=== PATIENT | female | born 1990 | race Caucasian/White ===

== ENCOUNTER 2017-08-22 21:33 | Observation (INO) ==
[2017-08-22] MEDS ORDERED: ONDANSETRON 4 MG/2 ML VIAL IV ONE (21:56)
[2017-08-22] MEDS ORDERED: 0.9 % SODIUM CHLORIDE 1,000 ML IV ONE ×2 (22:02→23:00)
[2017-08-22] MEDS ORDERED: PROMETHAZINE 25 MG/ML VIAL IV ONE (22:19)
[2017-08-22 22:50] LABS: ALT/SGPT 21 U/l (0-40); Albumin 3.9 gm/dL (3.2-5.2); Albumin/Globulin Ratio 1.3 (1.0-2.3); Alkaline Phosphatase 139 U/L (39-117); Blood Urea Nitrogen 15 mg/dl (6-20)
--- NOTE | 2017-08-22 23:12 | Emergency Department Note ---
Abdominal Pain HPI - General Chief Complaint: Flank Pain Stated Complaint: difficulty urinating, right flank pain Time Seen by Provider: 08/22/17 21:38 Source: patient Mode of arrival: ambulatory Limitations: no limitations - History of Present Illness HPI Narrative: The patient is a pleasant 27-year-old female who presents today with worsening right-sided flank pain and back pain status post cholecystectomy last Friday. The patient reports that she had a cholecystectomy for known gallstones and that she was kept overnight and discharged on Friday. She reports that the first couple of days she was doing well but then began having right-sided flank pain, nausea, vomiting and dry heaving. She reports that her incision sites are very painful. She denies any fevers at home. Is having trouble getting food and fluids down although she is trying. Describes the pain as a 10 on 10, sharp and throbbing. Denies any fevers but states she has been chilled. And she has had diarrhea since the day of surgery. She also describes feeling short of breath here tonight. with review of records from Dr. Borrero - pre-operative dx included cholelithiasis with cholecystitis. "No drain necessary" is in the report but patient has a drain in place. MD Complaint: abdominal pain, flank pain Severity scale (1-10): 10 Quality: sharp - Related Data Home Medications Medication Instructions Recorded Confirmed Cyclobenzaprine [Flexeril] 10 mg PO TID 07/08/17 08/23/17 traMADol [Ultram] 50 - 100 mg PO Q4-6HP PRN 07/08/17 08/23/17 Previous Rx's Medication Instructions Recorded HYDROcodone/APAP 5/325MG [[place] 1 tab PO Q4HP PRN #30 tab 08/16/17 5-325Mg] Allergies Allergy/AdvReac Type Severity Reaction Status Date / Time NSAIDS (Non-Steroidal Allergy Unknown Unknown Verified 08/15/17 20:54 Anti-Inflamma Review of Systems All systems ED: reviewed and negative except as stated. Abdominal Pain PMH - Past Medical History Attestation: Yes: The following information was validated with the patient. Medical history: Reports: no medical history Surgical history ED: Reports: cholecystectomy - Social History Smoking status: Former smoker Alcohol use: Reports: Unknown Drug use: Reports: unknown Physical Exam Limitations: no limitations General appearance: alert, in distress (diaphoretic, dry heaving into a bag) Head: atraumatic, normocephalic Eye: Present: normal appearance ENT: normal exam Chest: Present: normal inspection Respiratory: Present: normal lung sounds bilaterally (patient reports it's hard to breath deeply) Cardiovascular: Present: regular rate, normal rhythm Abdominal: Present: soft, tenderness (right lateral abdomen surrounding the drain site, incision sites are healing without significant erythema - sutures in place), normal bowel sounds Abdominal tenderness: Present: RUQ, RLQ, moderate Extremities: Present: normal inspection Neurological: Present: alert, oriented X3 Skin: Present: warm, diaphoresis Course Course Narrative: Patient presents 1 week status post cholecystectomy with shortness of breath, right flank pain and right upper quadrant abdominal pain. Her vital signs are stable but she is dry heaving in the room and obviously uncomfortable. Lab work was ordered, IV fluids started, IV antinausea medication started, CT scan abdomen and pelvis and chest x-ray obtained. - Reevaluation(s) Reevaluation #1: Lab work returned showing relatively normal results. No leukocytosis appreciated. She does have a slightly elevated alkaline phosphatase compared to before surgery that would be expected after the procedure. CT abdomen and pelvis returned showing no evidence of an acute postsurgical complication from cholecystectomy. Hepatis steatosis was appreciated and colonic stool. End was considered and moderate with evidence of small bowel ileus. The patient this time continued to have nausea and vomiting. She was given Phenergan with some improvement of her symptoms. Reevaluation #2: Called and spoke with Dr. Borrero about the patient and findings of an ileus. Will admit for observation. Vital Signs Temperature 98.4 F 08/22/17 21:33 Pulse Rate 81 08/22/17 21:33 Respiratory Rate 16 08/22/17 21:33 Blood Pressure 126/82 08/22/17 21:33 Pulse Oximetry (%) 98 08/22/17 21:33 Temperature 97.4 F 08/23/17 00:55 Pulse Rate 72 08/23/17 00:55 Respiratory Rate 10 L 08/23/17 00:55 Blood Pressure 100/63 08/23/17 00:55 Pulse Oximetry (%) 94 08/23/17 00:55 Abdominal Pain - Lab Data Lab results reviewed: Yes I reviewed the patient's lab results. Result diagrams: 08/22/17 22:05 08/22/17 22:05 Lab Results 08/22/17 08/22/17 Range/Units 22:05 22:05 WBC 7.4 (4.5-11.0) K/mcL RBC 4.26 (4.00-5.20) M/mcL Hgb 11.9 L (12.0-15.0) g/dL Hct 36.0 (36.0-48.0) % MCV 84.6 (80.0-100.0) fL MCH 28.0 (26.0-34.0) pg MCHC 33.1 (31.0-36.0) g/dL RDW 14.1 (11.5-14.5) % Plt Count 276 (140-440) K/mcL MPV 9.6 (7.4-10.4) fL Gran % 69.0 (38.0-78.0) % Lymph % (Auto) 20.2 (15.5-49.0) % [place] % (Auto) 7.2 (1.0-12.0) % Eos % (Auto) 1.3 (0.0-7.0) % Baso % (Auto) 2.3 H (0.0-2.0) % Gran # 5.1 (1.8-8.0) K/mcL Lymph # (Auto) 1.5 (1.5-4.8) K/mcL [place] # (Auto) 0.5 (0.1-0.9) K/mcL Eos # (Auto) 0.1 (0.0-0.7) K/mcL Baso # (Auto) 0.2 (0.0-0.3) K/mcL Sodium 134 (133-145) mmol/L Potassium 4.2 (3.3-5.1) mmol/L Chloride 98 (96-108) mmol/L Carbon Dioxide 26 (22-30) mmol/L Anion Gap 10.0 (8-16) BUN 15 (6-20) mg/dl Creatinine 0.7 (0.6-1.1) mg/dl GFR Calculation 117 Glucose 121 H (70-105) mg/dL Calcium 8.9 (8.6-10.4) mg/dl Total Bilirubin 0.2 (0.0-1.0) mg/dL AST 23 (0-37) U/l ALT 21 (0-40) U/l Alkaline Phosphatase 139 H (39-117) U/L Total Protein 6.9 (5.9-8.4) gm/dL Albumin 3.9 (3.2-5.2) gm/dL Globulin 3.0 (2.2-3.7) gm/dL Albumin/Globulin Ratio 1.3 (1.0-2.3) Disposition Pt seen by TECHNICAL ADMINISTRATIVE ASSISTANT/PA only: No Clinical Impression: Postoperative ileus Disposition: Xfer As Outpt/Obs ([facility]) Condition: Fair
[2017-08-22 23:14] LABS: Basophils # (Auto) 0.2 K/mcL (0.0-0.3); Basophils % (Auto) 2.3 % (0.0-2.0); Eosinophils # (Auto) 0.1 K/mcL (0.0-0.7); Eosinophils % (Auto) 1.3 % (0.0-7.0); Lymphocytes # (Auto) 1.5 K/mcL (1.5-4.8); Lymphocytes % (Auto) 20.2 % (15.5-49.0); Mean Cell Volume 84.6 fL (80.0-100.0); Mean Corpuscular HGB Conc 33.1 g/dL (31.0-36.0); Monocytes # (Auto) 0.5 K/mcL (0.1-0.9); Monocytes % (Auto) 7.2 % (1.0-12.0); Platelet Count 276 K/mcL (140-440); RBC 4.26 M/mcL (4.00-5.20); Red Cell Distribution Width 14.1 % (11.5-14.5)
[2017-08-23] MEDS ORDERED: ONDANSETRON 4 MG/2 ML VIAL IV PRN (00:09)
[2017-08-23] MEDS ORDERED: PROMETHAZINE 25 MG/ML VIAL IV PRN (00:10)
[2017-08-23] MEDS: ACETAMINOPHEN 650 MG/65 ML BOTTLE IV PRN ×4 (01:13→23:41)
[2017-08-23] MEDS: 0.9 % SODIUM CHLORIDE 1,000 ML IV SCH ×2 (01:14→12:23)
--- NOTE | 2017-08-23 06:13 | Cat Scan Report ---
CLINICAL INFORMATION: Status post cholecystectomy. Abdominal pain. COMPARISON: 07/08/2017 TECHNIQUE: Axial images were obtained through the abdomen and pelvis. Sagittally and coronally reformatted images. FINDINGS: Lung bases are negative. No ankle infiltrate or mass. No pleural fluid. No pericardial fluid. There is a small hiatal hernia. Patient has undergone previous H[place]-en-Y gastric bypass. Patient is also status post open cholecystectomy. There is a surgical drain in the subhepatic space. There are surgical clips in the gallbladder fossa. No evidence for postsurgical abscess. No significant free intraperitoneal fluid. No localized fluid collections. Patient did not receive intravenous or oral contrast material which diminishes the sensitivity of this examination. No focal intrahepatic abnormalities. Liver contour is smooth. No splenomegaly. Pancreas is negative. No pancreatitis. No adrenal mass. The adrenal glands are suboptimally visualized. No hydronephrosis. No obstructing or nonobstructing renal calculi. No hydroureter. No bladder stone. Uterus is present and retroflexed. No pelvic abscess. No adnexal mass. No diverticulitis. No detectable colonic mass. No evidence for appendicitis. The appendix is not well-visualized but there is no enlarged appendix or localized inflammatory reaction. Slight amount fecal material appears normal. No small bowel dilatation. No pneumatosis. No biliary or portal venous gas. No pneumoperitoneum. Patient has undergone previous spinal fusion from the lower thoracic spine to the sacrum. There has been long segment posterior decompression. Examination was initially interpreted by [facility] IMPRESSION: 1. Status post open cholecystectomy. No postoperative abscess. 2. Otherwise no acute abnormality or interval change since 07/08/2017 The exam was performed using radiation dose optimization techniques including, but not limited to, automated exposure control, adjustment of the mA and/or kV according to patient size and use of iterative reconstruction technique. Interpreted and Authenticated by: Archie Duque 08/23/17
--- NOTE | 2017-08-23 06:15 | XRay Report ---
INDICATION: Previous cholecystectomy. Abdominal pain. TECHNIQUE: AP and lateral upright chest x-ray COMPARISON: 08/07/2014 FINDINGS: Lungs are negative. No parenchymal infiltrate or mass. Heart size and vascularity are normal. No pulmonary edema or pulmonary congestion. No acute abnormality. No pneumoperitoneum Patient has undergone long thoracolumbar fusion for treatment of scoliosis. IMPRESSION: Negative AP and lateral chest x-ray. No acute or focal abnormality Interpreted and Authenticated by: Archie Duque 08/23/17
[2017-08-23] MEDS ORDERED: METOCLOPRAMIDE 10 MG/2 ML VIAL IV PRN (12:34)
--- NOTE | 2017-08-23 13:02 | General Surg History&Physical ---
History of Present Illness Patient information: Note initiated : 08/23/17 at 12:58 pm Service Date, if different from initiated Date: [] Patient: Alana Soares 27 y/o F admitted on 08/23/17 for difficulty urinating, right flank pain. Chief Complaint: [] HPI: Ms. Soares is a 27 year old F admitted with right flank and right CVA pain with associated nausea and vomiting. The patient states that she had acute onset of right-sided flank pain about 2 days ago. Has increased in severity. She has noted difficulty with voiding and does not have the sensation of bladder fullness. Her urine has been darker. She has not had urgency or frequency. She has mild soreness around her staple lines and around her STARR drain. Bowel movements have been watery but not frequent. She was seen in the emergency room and treated. Her LFTs are normal and white blood count is normal. CT shows normal bowel gas pattern with gas and colon and small bowel. Gas extends to the rectum and she has had anticipated amount of stool in her colon. Urine study was not done. Patient is status post laparoscopic cholecystectomy 1 week ago and was going well until onset of symptoms 2 days ago. Her STARR drainage is serous. Review of Systems - Constitutional malaise, no weakness, no weight loss - EENT Nose, mouth and throat: no abnormal hearing, no dizziness, no vertigo - Cardiovascular no chest pain with activity, no dyspnea on exertion, no palpatations, no syncope - Respiratory no cough, no pain on inspirtation, no excessive phlegm production, no pain with cough - Gastrointestinal abdominal pain, bloating, diarrhea, nausea, vomiting - Genitourinary Genitourinary: change in urinary stream, difficulty urinating, flank pain, urinary urgency, no dysuria - Musculoskeletal stiffness, no arthralgias, no myalgias - Integumentary no changing lesions, no new lesions, no pruritus, no rash - Neurological no focal weakness, no headache(s), no lack of coordination, no vertigo - Psychiatric anxiety, no depression - Endocrine no fatigue - Hematologic/Lymphatic no easy bleeding, no easy bruising, no lymphadenopathy - Allergic/Immunologic no tongue swelling, no throat swelling, no uticaria, no wheezing, no lip swelling Past History Past medical history: 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 Chronic neuropathic pain History of gallstone disease Hypertension GERD Past surgical history: Gastric bypass Full spinal realignment Laparoscopic gastric banding Past family history: Diabetes mellitus Hypertension Past social history: Single Disabling Former smoker Occasional alcohol use Occasional marijuana use Medications and Allergies Home Medications Medication Instructions Recorded Confirmed Type Cyclobenzaprine [Flexeril] 10 mg PO TID 07/08/17 08/23/17 History traMADol [Ultram] 50 - 100 mg PO Q4-6HP PRN 07/08/17 08/23/17 History HYDROcodone/APAP 5/325MG [[place] 1 tab PO Q4HP PRN #30 tab 08/16/17 08/23/17 Rx 5-325Mg] Allergies Allergy/AdvReac Type Severity Reaction Status Date / Time NSAIDS (Non-Steroidal Allergy Unknown Unknown Verified 08/15/17 20:54 Anti-Inflamma Exam Temp Pulse Resp BP Pulse Ox 98.2 F 66 16 100/66 96 08/23/17 12:00 08/23/17 12:00 08/23/17 12:00 08/23/17 12:00 08/23/17 12:00 - General physical appearance well developed, well nourished, no distress - Eyes PERRL, normal ocular movement - ENT normal pinna, normal nares, normal mucosa, no hearing loss, no congestion - Head Head exam IM: Present: atraumatic, normal inspection, normocephalic - Neck no masses, no bruits, trachea midline, no lymphadectomy, no venous distension - Cardiovascular Cardiovascular exam IM: Present: normal rate and rhythm - Respiratory normal expansion, normal respiratory effort, clear to percussion, clear to auscultation - Abdomen Abdomen: Present: soft, tender (minimal tenderness around tube sites and port sites; mild suprapubic tenderness; good active bowel sounds; no detectable distention; right CVA tenderness), bowel sounds Hernia: Present: none - Genitourinary Present: normal external genitalia - Integumentary Present: no rash, no growths, no abnormal pigmentation - Neurologic Present: normal coordination, normal sensation - Musculoskeletal Present: normal gait, normal posture - Psychiatric Present: oriented to time, oriented to person, oriented to place, speech is normal, memory intact Assessment and Plan (1) CVA tenderness Check urine analysis with cultures and sensitivity Status: Acute (2) Postoperative ileus Reglan 10 mg IV every 6 Advance diet as tolerated Status: Acute (3) HTN (hypertension) Status: Chronic Qualifiers: Hypertension type: essential hypertension Qualified Code(s): I10 - Essential (primary) hypertension (4) Cholelithiasis and cholecystitis without obstruction Postoperative state without associated difficulty Status: Resolved Qualifiers: Cholelithiasis location: gallbladder Cholecystitis acuity: chronic Qualified Code(s): K80.10 - Calculus of gallbladder with chronic cholecystitis without obstruction (5) Neuropathic pain Continue home medications Status: Chronic
[2017-08-23] MEDS: CIPROFLOXACIN 400 MG/200 ML BAG IV SCH ×2 (13:23→21:22)
[2017-08-23 14:02] LABS: Appearance,Urine TURBID; Bacteria,Urine 0 /hpf (0); Bilirubin,Urine NEG (NEG); Color,Urine YELLOW; Glucose,Urine (UA) NEGATIVE (NEG); Leukocyte Esterase,Urine 25 /uL (NEG); Mucus,Urine MOD /hpf (0); Protein,Urine NEG (NEG); Specific Gravity,Urine 1.028 (1.000-1.035); Urine Blood NEG mg/dL (<0.03); Urine RBC 2 /hpf (0-1); Urine Squamous Epithelial Cell 2 /hpf (0-4); Urine WBC 6 /hpf (0-4)
[2017-08-23] MEDS: CYCLOBENZAPRINE 10 MG TABLET PO SCH ×2 (14:47→21:22)
[2017-08-23] MEDS: HYDROmorphone 2 MG/ML VIAL IV PRN ×3 (14:47→19:31)
[2017-08-24] MEDS: HYDROmorphone 2 MG/ML VIAL IV PRN ×3 (00:41→08:11)
[2017-08-24] MEDS: 0.9 % SODIUM CHLORIDE 1,000 ML IV SCH ×3 (00:46→12:00)
[2017-08-24 05:20] LABS: Basophils # (Auto) 0 K/mcL (0.0-0.3); Basophils % (Auto) 0.4 % (0.0-2.0); Eosinophils # (Auto) 0.1 K/mcL (0.0-0.7); Eosinophils % (Auto) 2.1 % (0.0-7.0); Lymphocytes # (Auto) 1.8 K/mcL (1.5-4.8); Lymphocytes % (Auto) 32.1 % (15.5-49.0); Mean Cell Volume 84.6 fL (80.0-100.0); Mean Corpuscular HGB Conc 33.1 g/dL (31.0-36.0); Monocytes # (Auto) 0.4 K/mcL (0.1-0.9); Monocytes % (Auto) 7.4 % (1.0-12.0); Platelet Count 278 K/mcL (140-440); RBC 3.84 M/mcL (4.00-5.20); Red Cell Distribution Width 14.2 % (11.5-14.5)
[2017-08-24 05:45] LABS: ALT/SGPT 18 U/l (0-40); Albumin 3.3 gm/dL (3.2-5.2); Albumin/Globulin Ratio 1.3 (1.0-2.3); Alkaline Phosphatase 122 U/L (39-117); Bilirubin,Direct < 0.2 mg/dL (0.0-0.3); Blood Urea Nitrogen 12 mg/dl (6-20); Gamma Glutamyl Transpeptidase 8 U/L (5-36); Uric Acid 4.2 mg/dL (2.5-8.0)
[2017-08-24] MEDS: CIPROFLOXACIN 400 MG/200 ML BAG IV SCH (08:20)
[2017-08-24] MEDS: CYCLOBENZAPRINE 10 MG TABLET PO SCH ×2 (08:20→14:07)
--- NOTE | 2017-08-24 13:38 | General Surgery Progress Note ---
Subjective Patient reports: feels better, still having pain, pain is less, tolerating a regular diet, voiding w/o difficulty, flatus, bowel movement, afebrile Narrative: Note initiated : 08/24/17 at 1:36 pm Service Date, if different from initiated Date: [] Patient: Alana Soares 27 y/o F admitted on 08/23/17 for difficulty urinating, right flank pain. Chief Complaint: [patient states that she feels much better.. Her right flank pain is significantly improved. She does not have the severe spasms that she had. The tenderness is significantly better. She is now able to void without difficulty and she feels the sensation to void. Her postvoid residual is negligible. Her white count remains normal. Urine analysis does not reveal any bacteria and very few white blood cells. C&S was not done. She was tolerated regular diet without difficulty. She denies nausea or vomiting] Objective Temp Pulse Resp BP Pulse Ox 98.2 F 59 L 16 115/79 96 08/24/17 11:31 08/24/17 11:31 08/24/17 11:31 08/24/17 11:31 08/24/17 11:31 - Additional Data Intake & Output - Last 24 hours: Intake & Output 08/22/17 08/23/17 08/24/17 08/25/17 05:59 05:59 05:59 05:59 Intake Total 2065 / 2065 4805 / 4805 1440 / 1440 Output Total 1020 / 1020 3160 / 3160 840 / 840 Balance 1045 / 1045 1645 / 1645 600 / 600 Weight 223 lb 225 lb 8 oz - General physical appearance moderate distress, moderate pain - Eyes PERRL, normal ocular movement - ENT normal pinna, normal nares, normal mucosa, no hearing loss, no congestion - Neck no masses, no bruits, trachea midline, no lymphadectomy, no venous distension - Respiratory normal expansion, normal respiratory effort, clear to auscultation - Cardiovascular Cardiovascular exam: Present: normal rate and rhythm, RRR, +S1, +S2. Absent: JVD - Abdomen tender (mild tenderness of right CVA region which appears to be more musculoskeletal than renal), bowel sounds (present), surgical scars (none) , masses (none) - Integumentary no rash, no growths, no abnormal pigmentation - Neurologic normal coordination, normal sensation - Musculoskeletal normal gait, normal posture - Psychiatric oriented to time, oriented to person, oriented to place, speech is normal, memory intact - Labs 08/24/17 04:05 08/24/17 04:05 Diabetes panel 08/24/17 Range/Units 04:05 Sodium 139 (133-145) mmol/L Potassium 4.1 (3.3-5.1) mmol/L Chloride 106 (96-108) mmol/L Carbon Dioxide 25 (22-30) mmol/L BUN 12 (6-20) mg/dl Creatinine 0.6 (0.6-1.1) mg/dl Glucose 85 (70-105) mg/dL Calcium 8.7 (8.6-10.4) mg/dl AST 17 (0-37) U/l ALT 18 (0-40) U/l Alkaline Phosphatase 122 H (39-117) U/L Total Protein 5.9 (5.9-8.4) gm/dL Albumin 3.3 (3.2-5.2) gm/dL Triglycerides 95 (<150) mg/dl Calcium panel 08/24/17 Range/Units 04:05 Calcium 8.7 (8.6-10.4) mg/dl Phosphorus 3.8 (2.7-4.5) mg/dL Albumin 3.3 (3.2-5.2) gm/dL Pituitary panel 08/24/17 Range/Units 04:05 Sodium 139 (133-145) mmol/L Potassium 4.1 (3.3-5.1) mmol/L Chloride 106 (96-108) mmol/L Carbon Dioxide 25 (22-30) mmol/L BUN 12 (6-20) mg/dl Creatinine 0.6 (0.6-1.1) mg/dl Glucose 85 (70-105) mg/dL Calcium 8.7 (8.6-10.4) mg/dl Adrenal panel 08/24/17 Range/Units 04:05 Sodium 139 (133-145) mmol/L Potassium 4.1 (3.3-5.1) mmol/L Chloride 106 (96-108) mmol/L Carbon Dioxide 25 (22-30) mmol/L BUN 12 (6-20) mg/dl Creatinine 0.6 (0.6-1.1) mg/dl Glucose 85 (70-105) mg/dL Calcium 8.7 (8.6-10.4) mg/dl Total Bilirubin 0.2 (0.0-1.0) mg/dL AST 17 (0-37) U/l ALT 18 (0-40) U/l Alkaline Phosphatase 122 H (39-117) U/L Total Protein 5.9 (5.9-8.4) gm/dL Albumin 3.3 (3.2-5.2) gm/dL Assessment and Plan (1) CVA tenderness Status: Acute Assessment and plan: Symptoms have improved. There are no findings to suggest pyelonephritis or UTI. Patient is stable for discharge home.. She will follow-up with her scheduled appointment on of next week Current Visit: Yes (2) Postoperative ileus Status: Acute Assessment and plan: Resolved Current Visit: Yes (3) HTN (hypertension) Status: Chronic Current Visit: No (4) Neuropathic pain Status: Chronic Assessment and plan: Chronic, persistent, unchanged Current Visit: No - Time Spent With Patient Total time spent is greater than 50% in coordination of care (as documented) at patient's floor/unit and/or counseling patient:
== END 2017-08-24 14:20 | disposition home or self-care (01) ==
LOC: MEDSUR 21:33 → ED 21:33 → MEDSUR 08-23 01:00
PROVIDERS: ADMIT Family Medicine Adult Medicine; ATTEND Family Medicine Adult Medicine